=== PATIENT | female | born 1960 | race Caucasian/White ===

== ENCOUNTER 2018-07-22 23:15 | Emergency (ER) | payer BC ==
[~2018-07-22] VITALS: Ht 165.1 cm; Wt 99.8 kg
[~2018-07-22 23:15] MED LIST: crestor; lisinopril
[2018-07-22 23:30] VITALS: BP 149/93
--- NOTE | 2018-07-23 00:19 | PHYS DOC ---
Past Medical History Past Medical History: High Cholesterol, Hypertension Past Surgical History: Alcohol Use: Occasionally Drug Use: None Adult General Chief Complaint Chief Complaint: SKIN RASH/ABSCESS HPI HPI 57-year-old female presents to ER with complaints of sudden onset of itching on bilateral arms and burning sensation on bilateral ears. Patient reports symptoms started around 10 PM last night and so she took Benadryl with slight improvement in symptoms. Patient denies any wheezing, shortness of air, throat pain, or throat swelling. Patient denies difficulty swallowing. Denies any chest pain or chest tightness. Patient denies any new lotion or food. Patient reports she did wash her sons closed picking up a pile which were his work clothes. She reports he works at the [email or web address] so is uncertain if he had any chemicals on his clothing. She reports she has history of eczema denies any worsening symptoms in the past few days. Review of Systems Review of Systems Constitutional: Denies fever or chills [] Eyes: Denies change in visual acuity, redness, or eye pain [] HENT: Denies nasal congestion or sore throat [] Respiratory: Denies cough or shortness of breath [] Cardiovascular: No additional information not addressed in HPI [] GI: Denies abdominal pain, nausea, vomiting, bloody stools or diarrhea [] : Denies dysuria or hematuria [] Musculoskeletal: Denies back pain or joint pain [] Integument: Denies rash or skin lesions [] Neurologic: Denies headache, focal weakness or sensory changes [] Endocrine: Denies polyuria or polydipsia [] All other systems were reviewed and found to be within normal limits, except as documented in this note. Current Medications Current Medications Current Medications Medications (Trade) Dose Ordered Sig/Judith Start Time Stop Time Status Last Admin Dose Admin Famotidine (Pepcid) 40 mg 1X ONCE 07/23/18 00:30 07/23/18 00:31 DC 07/23/18 00:28 40 MG Prednisone (Prednisone) 40 mg 1X ONCE 07/23/18 00:30 07/23/18 00:31 DC 07/23/18 00:27 40 MG Allergies Allergies Allergies Coded Allergies Type Severity Reaction Last Updated Verified No Known Drug Allergies 11/09/14 No Physical Exam Physical Exam Constitutional: Well developed, well nourished, no acute distress, non-toxic appearance. [] HENT: Normocephalic, atraumatic, bilateral external ears normal, oropharynx moist, no oral exudates, nose normal. [] Eyes: PERRLA, EOMI, conjunctiva normal, no discharge. [] Neck: Normal range of motion, no tenderness, supple, no stridor. [] Cardiovascular:Heart rate regular rhythm, no murmur [] Lungs & Thorax: Bilateral breath sounds clear to auscultation [] Abdomen: Bowel sounds normal, soft, no tenderness, no masses, no pulsatile masses. [] Skin: Warm, dry, no erythema, no rash. [] Back: No tenderness, no CVA tenderness. [] Extremities: No tenderness, no cyanosis, no clubbing, ROM intact, no edema. [] Neurologic: Alert and oriented X 3, normal motor function, normal sensory function, no focal deficits noted. [] Psychologic: Affect normal, judgement normal, mood normal. [] Current Patient Data Vital Signs Vital Signs Date Time Temp Pulse Resp B/P (MAP) Pulse Ox O2 Delivery O2 Flow Rate FiO2 07/22/18 23:30 97.9 87 18 149/93 (111) 94 Room Air 97.9 EKG EKG [] Radiology/Procedures Radiology/Procedures [] Course & Med Decision Making Course & Med Decision Making With patient having no complaints of shortness of air or difficulty swallowing discharge instructions were discussed. Patient reports her itching and burning sensation on her ears has mostly subsided and she continues to deny any wheezing or throat pain or swelling. Discussed plans for Medrol Dosepak and patient to use [id number] Benadryl and/or Pepcid as needed if symptoms worsen. Education provided on signs and symptoms to return to ER for. If symptoms persist patient will follow up with primary care physician or ladies suit operator for further care. Discharge instructions were discussed. At time of discharge patient was in no visible distress with clear bilateral lung sounds. Patient was speaking in full sentences with equal nonlabored respirations. Dragon Disclaimer Dragon Disclaimer This electronic medical record was generated, in whole or in part, using a voice recognition dictation system. Departure Departure Impression: Primary Impression: Contact dermatitis Disposition: 01 HOME, SELF-CARE Condition: STABLE Referrals: UNKNOWN PCP NAME (PCP) Patient Instructions: Contact Dermatitis Additional Instructions: Benedryl as needed if itching continues or with worsening symptoms as directed on container. You can use over the counter Pepcid as directed on container as an antihistamine. If symptoms persist follow-up with primary doctor for re-evaluation or ladies suit operator. Scripts Methylprednisolone (MEDROL) 4 Mg Tab.ds.pk 1 PKG PO UD, #1 PKG 0 Refills Prov: TORREY TAVERAS APRN 07/23/18 TORREY TAVERAS APRN Jul 23, 2018 00:19
[2018-07-23] MEDS ORDERED: FAMOTIDINE 20 MG TABLET. PO ONE (00:30)
[2018-07-23] MEDS ORDERED: predniSONE 20 MG TABLET PO ONE (00:30)
[2018-07-23] MEDS ORDERED: METH4TAB2 PO (00:53)
== END 2018-07-23 01:20 | disposition home or self-care (01) ==
LOC: ER 23:15
DX: L25.9 Unspecified contact dermatitis, unspecified cause (principal); E78.00 Pure hypercholesterolemia, unspecified; I10 Essential (primary) hypertension; Z98.890 Other specified postprocedural states
CPT/HCPCS: 99283; J7512